=== PATIENT | male | born 1945 | race Caucasian/White ===

== ENCOUNTER 2016-08-30 11:40 | Inpatient (IN) | payer MEDICARE ==
[~2016-08-30] VITALS: Ht 160 cm; Wt 61.2 kg
[~2016-08-30 11:40] MED LIST: ASPIRIN325 MG PO; COREG 3.1253.125 MG; DEPAKOTE500 MG PO; DOLOPHINE HCL5 MG PO; MIRALAX17 GM PO; NORCO 7.5-3251 EACH PO; POTASSIUM20 MEQ/11 PO; PREDNISONE5 MG PO; XANAX0.5 MG PO; ZANTAC150 MG PO
[2016-08-30 12:58] LABS: BASOPHILS 0.3 % (0.0-2.0); EOSINOPHILS 0.5 % (0-7); HEMATOCRIT 46.7 % (42.0-54.0); HEMOGLOBIN 14.9 g/dL (13.5-17.5); IMMATURE GRANULOCYTES 0.3 % (0-5); LYMPHOCYTES 11.3 % (15-50); MCH 27.2 pg (26.0-34.0); MCHC 31.9 g/dL (31.0-37.0); MCV 85.2 fL (80.0-100.0); MEAN PLATELET VOLUME 10.5 fL (7.4-10.4); MONOCYTES 14.8 % (2-11); NEUTROPHILS 72.8 % (40-80); PLATELET COUNT 228 10x3/uL (130-400); RBC 5.48 10x6/uL (4.20-6.10); RDW 16.3 % (11.5-14.5); WBC 10.9 10x3/uL (4.8-10.8)
[2016-08-30 13:15] LABS: INR 3.11 (0.85-1.17); PROTIME 32.3 SECONDS (11.6-15.0)
[2016-08-30 13:39] LABS: APPEARANCE HAZY (CLEAR); BILIRUBIN NEGATIVE (NEGATIVE); COLOR YELLOW (YELLOW); EPITHELIAL CELLS RARE /hpf (0-5); GLUCOSE NEGATIVE (NEGATIVE); KETONE LARGE mg/dL (NEGATIVE); LEUKOCYTE ESTERASE NEGATIVE (NEGATIVE); NITRITE NEGATIVE (NEGATIVE); PROTEIN 1+ mg/dL (NEGATIVE); SPECIFIC GRAVITY 1.015 (1.005-1.020); UROBILINOGEN NORMAL (NORMAL); WHITE CELLS - URINE OCC /hpf (0-5)
[2016-08-30 13:40] LABS: BACTERIA FEW /hpf (NONE SEEN); MUCUS <1+ /lpf (NONE SEEN)
[2016-08-30 13:53] LABS: ALBUMIN 3.4 g/dL (3.4-5.0); ALKALINE PHOSPHATASE 81 U/L (46-116); ALT (SGPT) 25 U/L (10-68); BILIRUBIN - TOTAL 0.63 mg/dL (0.2-1.3); CALCIUM 8.5 mg/dL (8.5-10.1); CARBON DIOXIDE 24.3 mmol/L (21.0-32.0); CHLORIDE - SERUM 101 mmol/L (98-107); CREATININE - SERUM 1.1 mg/dL (0.6-1.3); POTASSIUM - SERUM 4.1 mmol/L (3.5-5.1); PROTEIN - SERUM 7.1 g/dL (6.4-8.2); SODIUM 139 mmol/L (136-145); UREA NITROGEN 13 mg/dL (7-18); eGFR NON AFRICAN AMERICAN 70 mL/min (90-120)
[2016-08-30 14:11] LABS: CALC OSMOLALITY 275 mosm/kg (275-300); CREATINE KINASE 456 UL (21-232); GLUCOSE 71 mg/dL (74-106); VALPROIC ACID (DEPAKOTE) 34.9 ug/mL (50.0-100.0)
[2016-08-30 14:16] LABS: TROPONIN-I < 0.017 ng/mL (0.000-0.060)
[2016-08-30 14:18] LABS: CKMB 1.8 U/L (0.0-3.6)
[2016-08-30 17:45] LABS: GLUCOSE - CSF 40 MG/DL (40-75); PROTEIN - CSF 47 MG/DL (12-60)
[2016-08-30 18:02] LABS: APPEARANCE - CSF CLEAR
[2016-08-30 18:03] LABS: RBC - CSF 2 cmm (0-0)
--- NOTE | 2016-08-30 19:58 | NUR ---
REC'D FROM ER DEPT PER STRETCHER TO ROOM 2226 A 71 Y/O W/M PER SERVICES DR. MCCLELLAND. DX. FALL/INTRACTIBLE BACK PAIN. LARGE PURPLE BRUISE TO LEFT THIGH. RT HAND ABRASION NOTED WITH COBAN ON. COBAN REMOVED AND GAUZE DRESSING APPLIED. IV RT ARM SALINE LOCK. [place] COLLAR ON NECK. SR UP X2 CALL LIGHT WITHIN REACH SCD'S APPLIED. ASSESSMENT PER ADMIT PACKET.
[2016-08-30 20:35] LABS: CKMB 1.1 U/L (0.0-3.6); CREATINE KINASE 357 UL (21-232)
[2016-08-30 20:36] LABS: TROPONIN-I < 0.017 ng/mL (0.000-0.060)
--- NOTE | 2016-08-30 21:00 | NUR ---
URIINAL IN PLACE.
--- NOTE | 2016-08-30 22:00 | NUR ---
IV OF NS STARTED AT 100CC'S/HR.
[2016-08-30 22:41] VITALS: BP 150/97; BMI 23.9
[2016-08-30] MEDS ORDERED: INDERAL10 MG PO (22:52)
[2016-08-30] MEDS ORDERED: FOLATE0.4 MG PO (22:53)
[2016-08-30] MEDS ORDERED: ULTRAM50 MG PO (22:54)
[2016-08-30] MEDS ORDERED: GABAPENTIN100 MG PO (22:55)
[2016-08-30] MEDS ORDERED: CYMBALTA60 MG PO (22:56)
[2016-08-30] MEDS ORDERED: COUMADIN5 MG PO (22:57)
--- NOTE | 2016-08-31 | NUR ---
RESTING AT THIS TIME VOIDED IN URINAL SPECIMEN OBTAINED AND SENT TO LAB.
[2016-08-31 01:00] VITALS: BP 148/88
--- NOTE | 2016-08-31 01:33 | NUR ---
C/P PAIN NECK AND HEAD MORPHINE 2 MG IVP GIVEN FOR PAIN CONTROL.
--- NOTE | 2016-08-31 01:33 | NUR ---
C/O PAIN NECK AND HEAD. MORPHINE GIVEN FOR PAIN CONTROL.
[2016-08-31 01:48] LABS: UDS - AMPHET NEGATIVE QUAL (NEGATIVE); UDS - BARB NEGATIVE QUAL (NEGATIVE); UDS - BENZO NEGATIVE QUAL (NEGATIVE); UDS - COCAINE NEGATIVE QUAL (NEGATIVE); UDS - METH NEGATIVE QUAL (NEGATIVE); UDS - OPIATE POSITIVE QUAL (NEGATIVE); UDS - PCP NEGATIVE QUAL (NEGATIVE); UDS - THC NEGATIVE QUAL (NEGATIVE)
[2016-08-31 02:26] LABS: CKMB 0.9 U/L (0.0-3.6); CREATINE KINASE 276 UL (21-232)
[2016-08-31 02:36] LABS: TROPONIN-I < 0.017 ng/mL (0.000-0.060)
--- NOTE | 2016-08-31 04:05 | NUR ---
YELLING OUT [facility] WANT[facility] TO EAT SOME FOOD.CALL HIS DREW SO SHE COULD TALK WITH HIM.
[2016-08-31 05:00] VITALS: BP 158/90
[2016-08-31 05:30] LABS: BASOPHILS 0.2 % (0.0-2.0); EOSINOPHILS 0.3 % (0-7); HEMATOCRIT 46.8 % (42.0-54.0); HEMOGLOBIN 14.9 g/dL (13.5-17.5); IMMATURE GRANULOCYTES 0.2 % (0-5); LYMPHOCYTES 11.8 % (15-50); MCHC 31.8 g/dL (31.0-37.0); MCV 84.8 fL (80.0-100.0); MEAN PLATELET VOLUME 11.2 fL (7.4-10.4); MONOCYTES 14.6 % (2-11); NEUTROPHILS 72.9 % (40-80); PLATELET COUNT 246 10x3/uL (130-400); RBC 5.52 10x6/uL (4.20-6.10); RDW 16.3 % (11.5-14.5); WBC 9.6 10x3/uL (4.8-10.8)
--- NOTE | 2016-08-31 05:45 | NUR ---
PT YELLING OUT STATES PAIN IN NECK AND HEAD. NOTIFIED NIALL MCMILLAN ORDERS REC'D. DC'D MORPHINE AND DILAUDID 0.5MG IVP GIVEN FOR PAIN CONTROL. INC URINE LINENS CHANGED.
[2016-08-31 05:50] LABS: INR 3.24 (0.85-1.17); PROTIME 33.4 SECONDS (11.6-15.0)
[2016-08-31 06:15] LABS: BILIRUBIN - TOTAL 0.55 mg/dL (0.2-1.3); CALCIUM 8.6 mg/dL (8.5-10.1); CARBON DIOXIDE 22.2 mmol/L (21.0-32.0); CREATININE - SERUM 1.1 mg/dL (0.6-1.3); POTASSIUM - SERUM 4.2 mmol/L (3.5-5.1); PROTEIN - SERUM 6.9 g/dL (6.4-8.2)
--- NOTE | 2016-08-31 06:30 | NUR ---
HERE AT BEDSIDE.
--- NOTE | 2016-08-31 07:00 | NUR ---
REPORT RECIEVED ASSUMED CARE. PATIENT IN BED WITHIV INTACT. NO COMPLAINTS A TTHIS TIME. CALL LIGHT WITHIN REACH. C COLLAR ON. BSCDS ON.
--- NOTE | 2016-08-31 08:00 | NUR ---
PATIENT IN PAIN. CALLED PHYSICIAN. NEW ORDERS RECIEVED AND CARRIED OUT.
[2016-08-31 08:02] VITALS: BP 180/113
[2016-08-31 09:18] LABS: CKMB 0.9 U/L (0.0-3.6); CREATINE KINASE 276 UL (21-232); TROPONIN-I < 0.017 ng/mL (0.000-0.060)
--- NOTE | 2016-08-31 12:08 | NUR ---
PATIENT OPTICAL FABRICATOR STARTED AT THIS TIME. IV INTACT. NO COMPLAINTS. CALL LIGHT WITHIN REACH.
[2016-08-31 12:39] VITALS: BP 166/113
[2016-08-31 13:28] LABS: ERYTHROCYTE SEDIMENTATION RATE 30 mm/hr (0-20)
[2016-08-31 14:34] VITALS: Ht 160 cm; Wt 61.2 kg
--- NOTE | 2016-08-31 14:34 | NUR ---
Patient Name: HADLEY GARCIA Admission Status: ER Accout number: [id number] Admission Date: 08-30-2016 : 1945 Admission Diagnosis:CERVICALGIA Attending: NAE Current LOS: 1 Anticipated DC Date: 09-03-2016 Planned Disposition: Home [facility] Discharge Planning Comments: CM MET WITH PATIENT REGARDING D/C NEEDS AND PLANS. PATIENT STATED HE LIVES WITH HIS (DREW) AND SHE WILL DRIVE HIM HOME AT DISCHARGE. PATIENT STATED THERE ARE 7 STEPS W/RAILS TO ENTER HIS HOME AND NO STAIRS INSIDE. PATIENT IS INDEPENDENT WITH HIS CARE AND HAS A CANE, WHEELCHAIR, AND WALKER AT HOME IF NEEDED. PATIENTS PCP IS DR. WASHINGTON AND PHARMACY IS [facility] AT [facility]. PATIENT DOES NOT THINK HE WILL NEED HOME HEALTH BUT IS OPEN TO IT IF NEEDED. CM WILL CONTINUE TO FOLLOW PATIENT WITH D/C NEEDS AND PLANS. PCP DR. WASHINGTON [facility] - [phone] DREW (SPOUSE) [phone] OR [phone] Middle [employer] Football Coach: Zena Ferguson Is the patient Alert and Oriented? Yes 0 * How many steps to enter\exit or inside your home? 7 W/RAILS 0 * PCP DR. WASHINGTON 0 * Pharmacy [facility] 0 * Preadmission Environment Home with Family 0 * ADLs Independent 0 * Equipment Cane Walker Wheelchair 0 * List name and contact numbers for known caregivers / representatives who currently or will assist patient after discharge: DREW (SPOUSE) [phone] 0 * Community resources currently utilized None 0 * Additional services required to return to the preadmission environment? Yes 0 * Can the patient safely return to the preadmission environment? Yes 0 * Has this patient been hospitalized within the prior 30 days at any hospital? No 0 Grand Total: 0
--- NOTE | 2016-08-31 16:00 | NUR ---
PATIENT TO GET MRI.
--- NOTE | 2016-08-31 17:20 | NUR ---
PATIENT BACK TO ROOM WITH IV INTACT. NO COMPLAINTS AT THIS TIME. CALL LIGHT WITHIN REACH.
--- NOTE | 2016-08-31 18:55 | NUR ---
PATIENT STATED HE DIDNT WANT TO EAT AT THIS TIME. NO COMPLAINTS. IV INTACT. CALL LIGHT WITHIN REACH.
--- NOTE | 2016-08-31 19:30 | NUR ---
PT LYING IN BED WITH COLLAR IN PLACE, ASSESSMENT COMPLETED, IV TO R FOREARM OUT WITH CATH INTACT AND DRAINING ON BED, WILL RESITE, NO ACUTE DISTRESS NOTED, FALL PRECAUTIONS IN PLACE, CL IN REACH, WILL MONITOR
--- NOTE | 2016-08-31 20:35 | NUR ---
BP 163/105, ASYMPTOMATIC, 20 G IV RESITED TO L FOREARM X 1 ATTEMPT, FLUIDS AND AFTER SCHOOL TEACHER RESTARTED, WILL MONITOR AND ADMINISTERED SCHEDULED MEDS, CL IN REACH
--- NOTE | 2016-08-31 20:50 | NUR ---
MEDS GIVEN PER MAR, DAVID WELL, DENIES NEEDS, NO DISTRESS NOTED, FALL PRECAUTIONS IN PLACE, CL IN REACH
[2016-08-31 21:00] VITALS: BP 175/106
--- NOTE | 2016-08-31 21:15 | NUR ---
BP NOW 155/100, WILL CONTINUE TO MONITOR
--- NOTE | 2016-08-31 22:30 | NUR ---
BP 149/98, WILL CONTINUE TO MONITOR, NO DISTRESS NOTED, CL IN REACH
--- NOTE | 2016-08-31 23:45 | NUR ---
RESTING WITH EYES CLOSED, AROUSES EASILY, NO ACUTE DISTRESS NOTED, FALL PRECAUTIONS IN PLACE, CL IN REACH
[2016-09-01 01:00] VITALS: BP 172/95
[2016-09-01 05:00] VITALS: BP 168/94
[2016-09-01 05:51] LABS: BASOPHILS 0.2 % (0.0-2.0); EOSINOPHILS 0.2 % (0-7); HEMATOCRIT 45.7 % (42.0-54.0); HEMOGLOBIN 14.8 g/dL (13.5-17.5); IMMATURE GRANULOCYTES 0.2 % (0-5); LYMPHOCYTES 9.1 % (15-50); MCH 27.1 pg (26.0-34.0); MCHC 32.4 g/dL (31.0-37.0); MCV 83.5 fL (80.0-100.0); MEAN PLATELET VOLUME 10.7 fL (7.4-10.4); MONOCYTES 14.3 % (2-11); PLATELET COUNT 274 10x3/uL (130-400); RBC 5.47 10x6/uL (4.20-6.10); RDW 16.4 % (11.5-14.5)
[2016-09-01 06:11] LABS: WBC 13.3 10x3/uL (4.8-10.8)
[2016-09-01 06:14] LABS: INR 2.22 (0.85-1.17); PROTIME 24.7 SECONDS (11.6-15.0)
[2016-09-01 06:16] LABS: ALBUMIN 2.4 g/dL (3.4-5.0); ALKALINE PHOSPHATASE 92 U/L (46-116); CALC OSMOLALITY 270 mosm/kg (275-300); CALCIUM 8.8 mg/dL (8.5-10.1); CARBON DIOXIDE 23.3 mmol/L (21.0-32.0); CHLORIDE - SERUM 101 mmol/L (98-107); GLUCOSE 101 mg/dL (74-106); POTASSIUM - SERUM 3.9 mmol/L (3.5-5.1); PROTEIN - SERUM 7.3 g/dL (6.4-8.2); SODIUM 136 mmol/L (136-145); UREA NITROGEN 11 mg/dL (7-18); eGFR NON AFRICAN AMERICAN 79 mL/min (90-120)
[2016-09-01 06:25] LABS: ALT (SGPT) 31 U/L (10-68)
--- NOTE | 2016-09-01 07:00 | NUR ---
REPORT RECIEVED ASSUMED CARE. PATIENT IN BED WITH IV INTACT. NO COMPLAINTS AT THIS TIME. LAYING IN BED WITH EYES CLOSED RESTING. WILL RESPOND WHEN SPOKEN TO. CALL LIGHT WITHIN REACH.
[2016-09-01 08:31] VITALS: BP 185/111
--- NOTE | 2016-09-01 10:30 | NUR ---
PATIENT UNABLE TO STAY AWAKE ENOUGH TO SWALLOW MEDS OR EAT AT THIS TIME. IV INTACT. RECIEVED IV MEDS. FAMILY AT BEDSIDE. CALL LIGHT WITHIN REACH.
[2016-09-01 11:46] VITALS: BP 166/114
--- NOTE | 2016-09-01 12:00 | NUR ---
PATIENT SLEEPING AT THIS TIME. FAMILY AT BEDSIDE. CALL LIGHT WITHIN REACH.
[2016-09-01 16:17] VITALS: BP 164/116
--- NOTE | 2016-09-01 16:30 | NUR ---
NEW ORDERS RECIEVED AND CARRIED OUT AT THIS TIME. PATIENT IN BED WITH EYES CLOSED RESTING QUIETLY. CALL LIGHT WITHIN REACH.
--- NOTE | 2016-09-01 18:14 | NUR ---
PATIENT IN BED WITH IV INTACT. NO COMPLAINTS AT THIS TIME. EYES CLOSED RSTING QUIETLY. NO SIGNS OF DISTRESS. CALL LIGHT WITHIN REACH.
--- NOTE | 2016-09-01 19:15 | NUR ---
BEDSIDE REPORT RECEIVED AND CARE OF PT ASSUMED. PT LYING IN SUPINE POSITION WITH EYES CLOSED. IV IN LEFT FA PATENT WITH NS INFUSING AT 100 ML / HR. O2 IN USE AT 2L VIA NC. WILL MONITOR CLOSLEY FOR NEEDS.
[2016-09-01 21:00] VITALS: BP 137/86
--- NOTE | 2016-09-01 22:12 | NUR ---
HS MEDICATIONS GIVEN. PT RESPONDS TO VOICE, AND FOLLOWS COMMANDS. TOOK PO MEDS WITH SIPS OF WATER WITHOUT DIFFICULTY.
[2016-09-02 02:30] VITALS: BP 142/91
--- NOTE | 2016-09-02 02:30 | NUR ---
PT CALLED FOR UPDATE. WILL BE HERE BY 7 AM TO SIGN CONSENT FORMS FOR AM PROCEDURE.
--- NOTE | 2016-09-02 03:53 | NUR ---
PT BUTTOCKS BECOMING RED, AND HE REFUSES TO BE TURNED...ONLY WANTS TO LAY FLAT ON HIS BACK.
[2016-09-02 05:00] VITALS: BP 142/90
[2016-09-02 05:51] LABS: BASOPHILS 0.1 % (0.0-2.0); EOSINOPHILS 0 % (0-7); HEMATOCRIT 44.6 % (42.0-54.0); HEMOGLOBIN 14.3 g/dL (13.5-17.5); IMMATURE GRANULOCYTES 0.3 % (0-5); LYMPHOCYTES 8.3 % (15-50); MCH 26.7 pg (26.0-34.0); MCHC 32.1 g/dL (31.0-37.0); MCV 83.2 fL (80.0-100.0); MEAN PLATELET VOLUME 10.2 fL (7.4-10.4); MONOCYTES 13.3 % (2-11); PLATELET COUNT 268 10x3/uL (130-400); RBC 5.36 10x6/uL (4.20-6.10); RDW 16.9 % (11.5-14.5)
[2016-09-02 06:00] LABS: INR 1.44 (0.85-1.17); PROTIME 17.4 SECONDS (11.6-15.0)
[2016-09-02 06:22] LABS: ALBUMIN 2.1 g/dL (3.4-5.0); ANION GAP 17.2 mmol/L (8-16); BILIRUBIN - TOTAL 0.63 mg/dL (0.2-1.3); CALCIUM 8.3 mg/dL (8.5-10.1); CARBON DIOXIDE 22.8 mmol/L (21.0-32.0); CREATININE - SERUM 1.1 mg/dL (0.6-1.3); PROTEIN - SERUM 5.8 g/dL (6.4-8.2)
--- NOTE | 2016-09-02 08:15 | NUR ---
ASSESSMENT PER FLOW SHEET.PT WITHOUT DISTRESS.NPO FOR PROCEDURE.CALL LIGHT IN REACH.
--- NOTE | 2016-09-02 08:15 | NUR ---
TO IR FOR PROCEDURE
--- NOTE | 2016-09-02 12:30 | NUR ---
HAS BEEN BACK FROM PROCEDURE.VSS.DRESSING TO BACK REMAINS CLEAN,DRY AND INTACT.BITES OF LUNCH PER .CALL LIGHT I REACH
[2016-09-02 13:31] VITALS: BP 140/95
[2016-09-02 16:17] VITALS: BP 142/92
--- NOTE | 2016-09-02 18:04 | NUR ---
RESTING,WITHOUT DISTRESS.WITHOUT CHANGE FROM INITIAL ASSESSMENT.CONT PLAN OF CARE
--- NOTE | 2016-09-02 19:00 | NUR ---
BEDSIDE REPORT RECEIVED AND CARE OF PT ASSUMED. PT LYING IN SUPINE POSITION WITH EYES CLOSED. O2 OFF AT THIS TIME, AND SPO2 96%. IV IN LEFT FA PATENT WITH NS INFUSING AT 100 ML / HR. MANAGER OF PATIENT / DILAUDID IN USE, STANDARD SETTINGS. SCD'S IN USE ON BLE. TELEMETRY IN PLACE AND READING 87 SR W/ ELEVETED ST AT THIS ASSESSMENT. WILL MONITOR CLOSELY FOR NEEDS. CALL LIGHT WITHIN REACH.
[2016-09-02 20:00] VITALS: BP 131/81
--- NOTE | 2016-09-02 22:20 | NUR ---
HS MEDICATIONS GIVEN. PT AWOKE AND TOOK PO MEDS WITH SIPS OF WATER WITHOUT DIFFICULTY. WILL CONTINUE TO MONITOR FOR NEEDS.
[2016-09-03] VITALS: BP 126/85
--- NOTE | 2016-09-03 00:20 | NUR ---
BATHED PT AND CHANGED ALL LINENS AND GOWN DUE TO INCONTINENT EPISODE. POSITIONED FOR COMFORT. CALL LIGHT WITHIN REACH. SIDE RAILS UP X2 FOR SAFETY.
[2016-09-03 04:00] VITALS: BP 120/85
--- NOTE | 2016-09-03 05:00 | NUR ---
BATHED AND CHANGED LINENS DUE TO INCONTINENCE EPISODE. POSITIONED FOR COMFORT. WILL CONTINUE TO MONITOR FOR NEEDS.
--- NOTE | 2016-09-03 05:30 | NUR ---
CHANGED DRESSING ON RIGHT HAND. CLEANSED WITH WOUND DESIGNATED BROKER AND PLACED NONSTICK TELFA, AND WRAPPED WITH KERLEX. PT TOLERATED WELL.
[2016-09-03 07:00] LABS: BASOPHILS 0 % (0.0-2.0); EOSINOPHILS 0 % (0-7); HEMATOCRIT 41.9 % (42.0-54.0); HEMOGLOBIN 13.7 g/dL (13.5-17.5); IMMATURE GRANULOCYTES 0.2 % (0-5); MCH 27.2 pg (26.0-34.0); MCHC 32.7 g/dL (31.0-37.0); MCV 83.3 fL (80.0-100.0); MEAN PLATELET VOLUME 10.6 fL (7.4-10.4); MONOCYTES 0.8 % (2-11); PLATELET COUNT 277 10x3/uL (130-400); RBC 5.03 10x6/uL (4.20-6.10); RDW 17.1 % (11.5-14.5)
[2016-09-03 07:19] LABS: ALBUMIN 1.9 g/dL (3.4-5.0); ANION GAP 15.1 mmol/L (8-16); BILIRUBIN - TOTAL 0.3 mg/dL (0.2-1.3); CALCIUM 8.6 mg/dL (8.5-10.1); CREATININE - SERUM 1.1 mg/dL (0.6-1.3); POTASSIUM - SERUM 4.1 mmol/L (3.5-5.1); PROTEIN - SERUM 6.7 g/dL (6.4-8.2)
[2016-09-03 07:32] LABS: INR 1.17 (0.85-1.17); PROTIME 14.8 SECONDS (11.6-15.0)
[2016-09-03 08:13] VITALS: BP 146/60
--- NOTE | 2016-09-03 09:00 | NUR ---
ASSESSMENT PER FLOW SHEET.PT AWAKE AND WITHOUT DISTRESS.TALKING WITH PT HE DOEANT REMEMBER MUCH ABOUT YESTREDAY OR SEEING .SAYS WILL BE HERE SOON.CALL LIGHT IN REACH.FALL PREVENTION IN PLACE.
[2016-09-03 12:17] LABS: FUNGUS STAIN Final report (())
[2016-09-03 12:26] VITALS: BP 135/103
--- NOTE | 2016-09-03 14:32 | NUR ---
RESTING WITHOUT DISTRESS.MONITOR FOR NEEDS
--- NOTE | 2016-09-03 15:24 | NUR ---
Rehab Note- Rehab Prescreen order received. The patient is [facility] and will require a PreAuth prior to IRF stay. Will need both a PT and OT eval. Thank you for this referral! Randee Chacon RN Clinical Liaison, Rehab Care/[facility]
[2016-09-03 16:02] VITALS: BP 130/85
--- NOTE | 2016-09-03 18:47 | NUR ---
REMAINS WITHOUT DISTRESS.WITHOUT CHANGE FROM INITIAL ASSESSMENT.CONT PLAN OF CARE
--- NOTE | 2016-09-03 18:55 | NUR ---
OT NOTE: PT COMPLETED BUE AROM EXS FOR INCREASED ACTIVITY TOLERANCE WITH ADLS. PT COMPLETED GROOMING TASK WITH MIN/MOD A. PT COMPLETED BED MOB WITH USE OF HAND RAILS. THANK YOU, BOZENA DUARTE/Luiz
[2016-09-03 21:00] VITALS: BP 159/101
[2016-09-03 21:07] LABS: AFB SPECIMEN PROCESSING Concentration (())
--- NOTE | 2016-09-04 00:16 | NUR ---
PT IS UP IN BEDSIDE CHAIR EATING SNACK. HE STATES HIS HEAD HURTS. HIS NURSE WAS FOUND TO BE AWAARE AND GETTING THE PAIN MEDS TOGETHER THAT HIS MD HAD ORDERED. THE BED IS LOW, RAILS UP X'S 2 WITH THE CALL LIGHT AT HAND.
--- NOTE | 2016-09-04 00:57 | NUR ---
PATIENT IS NOT AGITATED ANYMORE. 2 NORCO WERE GIVEN FOR HEAD AND NECK PAIN. PATIENT STATED HE IS GOING TO SLEEP IN THE CHAIR.
[2016-09-04 02:15] VITALS: BP 160/90
[2016-09-04 04:00] VITALS: BP 160/87
[2016-09-04 06:42] LABS: BASOPHILS 0 % (0.0-2.0); EOSINOPHILS 0 % (0-7); HEMATOCRIT 45.4 % (42.0-54.0); HEMOGLOBIN 14.4 g/dL (13.5-17.5); IMMATURE GRANULOCYTES 0.2 % (0-5); LYMPHOCYTES 6.8 % (15-50); MCH 26.9 pg (26.0-34.0); MCHC 31.7 g/dL (31.0-37.0); MCV 84.9 fL (80.0-100.0); MEAN PLATELET VOLUME 10.2 fL (7.4-10.4); MONOCYTES 1.9 % (2-11); NEUTROPHILS 91.1 % (40-80); RBC 5.35 10x6/uL (4.20-6.10); RDW 17.2 % (11.5-14.5)
[2016-09-04 06:47] LABS: WBC 11.8 10x3/uL (4.8-10.8)
[2016-09-04 06:48] LABS: PLATELET COUNT 352 10x3/uL (130-400)
[2016-09-04 06:59] LABS: ALBUMIN 2.7 g/dL (3.4-5.0); ANION GAP 15.6 mmol/L (8-16); BILIRUBIN - TOTAL 0.5 mg/dL (0.2-1.3); CALCIUM 9.5 mg/dL (8.5-10.1); CARBON DIOXIDE 24.3 mmol/L (21.0-32.0); CREATININE - SERUM 1.2 mg/dL (0.6-1.3); POTASSIUM - SERUM 3.9 mmol/L (3.5-5.1); PROTEIN - SERUM 7.8 g/dL (6.4-8.2)
[2016-09-04 07:02] LABS: INR 1.1 (0.85-1.17); PROTIME 14.1 SECONDS (11.6-15.0)
--- NOTE | 2016-09-04 07:15 | NUR ---
AWAKE CONFUSED MULTIPLE BRUISES OVER BODY AT PRESENT AT BEDSIDE TRYING TO RE-ORIENT PT SCDS IN PLACE SL PATENT IN LFA.
--- NOTE | 2016-09-04 09:30 | NUR ---
PTS BED CHGD TO BED ALARM BED AND IRINA MT IN PLACE.
[2016-09-04 10:36] VITALS: BP 159/93
--- NOTE | 2016-09-04 11:00 | NUR ---
AWAKE ALERT COLOR AT PRESENT TALKING TO STATES FEELS WELL AT PRESENT TIME SWELLING NOTED STILL TO RT LOWER LEGS.
[2016-09-04 11:32] VITALS: BP 148/91
--- NOTE | 2016-09-04 13:00 | NUR ---
UP IN CHAIR WITH PT AT BEDSIDE AT PRESENT,
--- NOTE | 2016-09-04 15:00 | NUR ---
MARLINEY AT PRESENT DENIES AND NEEDS AT PRESENT VOIDING FREELY PER URINAL AT PRESENT.
[2016-09-04 15:12] VITALS: BP 148/93
--- NOTE | 2016-09-04 16:00 | NUR ---
SLEEPING QUIETLY AT PRESENT N/C AT PRESENT RESP EVEN AND UNLABORED AT PRESENT.
--- NOTE | 2016-09-04 16:00 | NUR ---
RAY CATH PLACED IN ST MANNER VIA VONDA TURNER 16 COUDUIT AT PRESENT RET URINE YELLOW.
--- NOTE | 2016-09-04 18:03 | NUR ---
SLEEPING QUIETLY AT PRESENT RESP EVEN AND UNLABORED AT PRESENT.
[2016-09-04 20:00] VITALS: BP 165/90
[2016-09-05] VITALS: BP 162/97
[2016-09-05 04:00] VITALS: BP 152/96
--- NOTE | 2016-09-05 05:50 | NUR ---
PATIENT AWAKE AND CONFUSED IN BED, ATTEMPT TO GET OOB 3 TIMES WITHOUT ASSISSTANCE. IRINA MAT ACTIVE. PIV SL IN LFA. BANDAGE ON BACK FROM AN I&D WITH NO DRAINAGE NOTED. PATIENT INCONT BLADDER. BED IN LOWEST LOCKED POSITION, HOB ELEVATED 40 DEGREES, IRINA ALARM ON, CALL LIGHT WITHIN REACH.
--- NOTE | 2016-09-05 07:30 | NUR ---
SLEEPING QUIETLY RESP EVEN AND UNLABORED AT PRESENT DENIES ANY NEEDS AT THIS TIME 02 CONT AT 2 L N/C.
--- NOTE | 2016-09-05 09:00 | NUR ---
MEDS GIVEN PT SOME WHAT CONFUSED AT PRESENT.
[2016-09-05 09:01] VITALS: BP 156/77
--- NOTE | 2016-09-05 10:30 | NUR ---
PT HERE TO GET PT UP DAVID WELL AT PRESENT .
--- NOTE | 2016-09-05 10:45 | NUR ---
REF TO STAY IN CHAIR READY TO GET BACK IN BED AT PRESENT.
[2016-09-05 12:06] VITALS: BP 150/77
--- NOTE | 2016-09-05 12:30 | NUR ---
PT REFUSING TO EAT HOLLERING AT NURSE TO GET OUT OF HIS ROOM AND LEAVE HIM ALONE.
--- NOTE | 2016-09-05 13:00 | NUR ---
CONT CONFUSED AT PRESENT PT RE-ORIENTED TO TIME PLACE AND PERSON CONT CONFUSED AT PRESENT.
[2016-09-05 13:52] LABS: BASOPHILS 0 % (0.0-2.0); EOSINOPHILS 0 % (0-7); HEMATOCRIT 40.4 % (42.0-54.0); HEMOGLOBIN 12.9 g/dL (13.5-17.5); IMMATURE GRANULOCYTES 0.4 % (0-5); LYMPHOCYTES 5.9 % (15-50); MCH 26.7 pg (26.0-34.0); MCHC 31.9 g/dL (31.0-37.0); MCV 83.6 fL (80.0-100.0); MEAN PLATELET VOLUME 10.5 fL (7.4-10.4); MONOCYTES 6.5 % (2-11); NEUTROPHILS 87.2 % (40-80); PLATELET COUNT 306 10x3/uL (130-400); RBC 4.83 10x6/uL (4.20-6.10); RDW 16.8 % (11.5-14.5)
[2016-09-05 14:14] LABS: ALBUMIN 2.4 g/dL (3.4-5.0); ANION GAP 11.8 mmol/L (8-16); BILIRUBIN - TOTAL 0.4 mg/dL (0.2-1.3); CALCIUM 8.3 mg/dL (8.5-10.1); CARBON DIOXIDE 27.4 mmol/L (21.0-32.0); CREATININE - SERUM 1.1 mg/dL (0.6-1.3); POTASSIUM - SERUM 4.2 mmol/L (3.5-5.1); PROTEIN - SERUM 5.8 g/dL (6.4-8.2)
--- NOTE | 2016-09-05 16:01 | NUR ---
CONT CONFUSED AT PRESENT GONE HOME AT PRESENT AT PRESENT N/C AT PRESENT.
[2016-09-05 16:26] VITALS: BP 151/91
--- NOTE | 2016-09-05 16:33 | NUR ---
CONT TO TRY AND GET OUT OF BED AT PRESENT.
--- NOTE | 2016-09-05 18:20 | NUR ---
CONT CONFUSED AT PRESENT .
[2016-09-05 19:00] VITALS: BP 170/104
--- NOTE | 2016-09-05 20:15 | NUR ---
PATIENT AWAKE AND ALERT BUT CONFUSED. 0 S/S OF DISTRESS. DENIES PAIN. 10MG OF APRESOLINE GIVEN THROUGH IV IN LEFT WRIST FOR BP OF 170/105. WILL REASSESS.
[2016-09-06] VITALS (7 sets, daily range): BP systolic 94–169; BP diastolic 56–109
--- NOTE | 2016-09-06 03:47 | NUR ---
SKIN PILER NOTIFIED THAT PATIENT WAS FOUND ON THE BATHROOM FLOOR AFTER SLIPPING OFF THE TOILET WHILE ATTEMPTING TO PUT ON A NEW PAIR OF BRIEFS. PATIENT IS STABLE, CONFUSED, HYPERTENSIVE, ON TELEMETRY, HEART RATE AND RHYTHM 68 SINUS, PULSE OXEMTRY MID 90'S. ONLY INJURY NOTED WAS A SMALL MAROON BRUISE THAT HAS A SMALL AMOUNT OF BLEEDING. PATIENT IS ABLE TO IDENTIFY THE NURSE BY NAME. BOX ALARM IS BEING ADDED ANOTHER SAFETY PERCAUTION.
[2016-09-06 05:40] LABS: BASOPHILS 0.1 % (0.0-2.0); EOSINOPHILS 0 % (0-7); HEMOGLOBIN 12.6 g/dL (13.5-17.5); IMMATURE GRANULOCYTES 0.9 % (0-5); MCH 26.3 pg (26.0-34.0); MCHC 31.5 g/dL (31.0-37.0); MCV 83.5 fL (80.0-100.0); MEAN PLATELET VOLUME 10.1 fL (7.4-10.4); MONOCYTES 14.9 % (2-11); NEUTROPHILS 67.1 % (40-80); PLATELET COUNT 280 10x3/uL (130-400); RBC 4.79 10x6/uL (4.20-6.10); RDW 16.9 % (11.5-14.5)
[2016-09-06 06:13] LABS: ALBUMIN 2.4 g/dL (3.4-5.0); ALKALINE PHOSPHATASE 65 U/L (46-116); ALT (SGPT) 46 U/L (10-68); BILIRUBIN - TOTAL 0.45 mg/dL (0.2-1.3); CALC OSMOLALITY 291 mosm/kg (275-300); CALCIUM 8.5 mg/dL (8.5-10.1); CARBON DIOXIDE 29.6 mmol/L (21.0-32.0); CHLORIDE - SERUM 106 mmol/L (98-107); GLUCOSE 104 mg/dL (74-106); PROTEIN - SERUM 5.9 g/dL (6.4-8.2); SODIUM 144 mmol/L (136-145); UREA NITROGEN 27 mg/dL (7-18); eGFR NON AFRICAN AMERICAN 79 mL/min (90-120)
[2016-09-06 06:26] LABS: POTASSIUM - SERUM 3.4 mmol/L (3.5-5.1)
--- NOTE | 2016-09-06 07:15 | NUR ---
SLEEPING AT THIS TIME. NO S/S OF DISTRESS PRESENT. RESPIRATIONS EVEN AND NON LABORED. CALL LIGHT IN REACH, WILL CONTINUE WITH PLAN OF CARE. IRINA MAT ALARM IN USE.
--- NOTE | 2016-09-06 09:46 | NUR ---
SCHEDULED MEDICATIONS ADMINISTERED AT THIS TIME WELL PRN NORCO PER ORDER FOR HEADACHE. ASSESSMENT PERFORMED PER FLOWSHEET. AT BEDSIDE. CALL LIGHT IN REACH, WILL CONTINUE WITH PLAN OF CARE.
--- NOTE | 2016-09-06 11:00 | NUR ---
RECEIVING BED BATH AT THIS TIME FOR INCONTINENCE BY NATHALY BATEMAN. REMAINS AT BEDSIDE. IRINA MAT ALARM IN USE.
--- NOTE | 2016-09-06 13:15 | NUR ---
UP IN RECLINER PER PHYSICAL THERAPY. SLEEPING AT THIS TIME WITH RESPIRATIONS EVEN AND NON LABORED. CALL LIGHT IN REACH, WILL CONTINUE WITH PLAN OF CARE.
--- NOTE | 2016-09-06 13:27 | NUR ---
CM REASSESSMENT NOTE: PATIENTS REFERRAL WAS SENT TO [facility] AND SENTHIL CALLED CM BACK AND STATED THEY WOULD NOT HAVE ANY BEDS AVAILABLE THIS WEEK. CM CALLED PATIENTS AND SHE CHOSE [facility]-REFERRAL SENT.
--- NOTE | 2016-09-06 14:40 | NUR ---
09/06/2016 14:33 DCP: Discharge Planning Tristan Application completed & faxed to [facility]. Patient has been approved for 60 days of convalescent care. Copy faxed to Hollie @ [facility].
--- NOTE | 2016-09-06 15:08 | NUR ---
NUTRITION MONITORING & EVAL CHART REVIEWED. PT VISIT. TOLERATING REG DIET, 75 TO 100% INTAKE RECENT MEALS. WILL CONTINUE TO PROVIDE DIET, HONOR FOOD PREFERENCES. RD FOLLOWING
--- NOTE | 2016-09-06 15:30 | NUR ---
SCHEDULED MEDICATIONS ADMINISTERED AT THIS TIME. TAKEN WITHOUT DIFFICULTY. PT DENIES NEEDS AT THIS TIME. CALL LIGHT IN REACH, WILL CONTINUE WITH PLAN OF CARE.
--- NOTE | 2016-09-06 19:19 | NUR ---
RECIEVED PT SITTING UP IN BED RESTING WITH EYES CLOSED, EASILY AROUSED, NO DISTRESS NOTED, IRINA ALARM ON, SR'S UP, CL IN REACH, WILL MONITOR
--- NOTE | 2016-09-06 20:43 | NUR ---
ROUTINE MEDS GIVEN PER MAR, DAVID WELL, DENIES NEEDS, FALL PRECAUTIONS IN PLACE, CL IN REACH
--- NOTE | 2016-09-06 23:15 | NUR ---
RESTING WITH EYES CLOSED, RESP WITH EASE, NO DISTRESS NOTED, FALL PRECAUTIONS IN PLACE, CL IN REACH
[2016-09-07 01:00] VITALS: BP 136/80
--- NOTE | 2016-09-07 03:29 | NUR ---
PRN NORCO GIVEN FOR C/O SMITH 01/17, DAVID WELL, CL IN REACH
[2016-09-07 04:00] VITALS: BP 138/86
[2016-09-07 05:40] LABS: BASOPHILS 0 % (0.0-2.0); EOSINOPHILS 1.4 % (0-7); HEMATOCRIT 39.2 % (42.0-54.0); HEMOGLOBIN 12.3 g/dL (13.5-17.5); IMMATURE GRANULOCYTES 1.2 % (0-5); LYMPHOCYTES 22.7 % (15-50); MCH 26.5 pg (26.0-34.0); MCHC 31.4 g/dL (31.0-37.0); MCV 84.5 fL (80.0-100.0); MEAN PLATELET VOLUME 10.5 fL (7.4-10.4); MONOCYTES 15.4 % (2-11); NEUTROPHILS 59.3 % (40-80); PLATELET COUNT 282 10x3/uL (130-400); RBC 4.64 10x6/uL (4.20-6.10); RDW 17.3 % (11.5-14.5); WBC 6.6 10x3/uL (4.8-10.8)
[2016-09-07 06:30] LABS: ALBUMIN 2.2 g/dL (3.4-5.0); ANION GAP 11.4 mmol/L (8-16); BILIRUBIN - TOTAL 0.33 mg/dL (0.2-1.3); CARBON DIOXIDE 26.5 mmol/L (21.0-32.0); CREATININE - SERUM 1.2 mg/dL (0.6-1.3); POTASSIUM - SERUM 3.9 mmol/L (3.5-5.1); PROTEIN - SERUM 5.5 g/dL (6.4-8.2)
--- NOTE | 2016-09-07 07:10 | NUR ---
ALERT AND ORIENTED WATCHING TV AT THIS TIME. CALL LIGHT IN REACH, BED IN LOWEST POSITION. WILL CONTINUE WITH PLAN OF CARE.
[2016-09-07 07:59] VITALS: BP 134/86
--- NOTE | 2016-09-07 09:24 | NUR ---
SCHEDULED MEDICATIONS ADMINISTERED AT THIS TIME. TAKEN WITHOUT DIFFICULTY. PT EATING BREAKFAST AT THIS TIME WITH MEAL SET UP ASSISTANCE. DENIES NEEDS AT PRESENT. ASSESSMENT PERFORMED PER FLOWSHEET. SRX2 WITH BED IN LOWEST POSITION AND WHEELS LOCKED. IRINA MAT ALARM IN USE FOR FALL PRECAUTIONS.
[2016-09-07 12:06] VITALS: BP 126/69
--- NOTE | 2016-09-07 12:34 | NUR ---
PRN NORCO-10 2 TABLETS ADMINISTERED AT THIS TIME FOR PAIN 7/10 IN HEAD AND NECK REGION. PAIN IS DESCRIBED TENSION. CALL LIGHT IN REACH, BED IN LOWEST POSITION WITH CALL LIGHT IN REACH. IRINA MAT ALARM ON AND IN USE AT THIS TIME. WILL CONTINUE WITH PLAN OF CARE.
--- NOTE | 2016-09-07 15:12 | NUR ---
CM REASSESSMENT NOTE: DISCHARGE TODAY-PATIENT HAS BEEN ACCEPTED TO [facility]. HE WILL GO BY FACILITY VAN TO A SKILLED BED.
[2016-09-07] MEDS ORDERED: INDERAL10 MG PO (15:38)
[2016-09-07] MEDS ORDERED: LOVENOX40 MG/0.4 SC (15:39)
[2016-09-07 16:17] VITALS: BP 112/82
--- NOTE | 2016-09-07 16:37 | NUR ---
IV TO LEFT WRIST D/C WITH CATH TIP INTACT. DISCHARGE INSTRUCTIONS SIGNED AND REPORT CALLED TO PATRICIA QUIROS LPN.
[2016-09-29 13:18] LABS: FUNGUS MYCOLOGY CULTURE Final report (())
[2016-10-02] MEDS ORDERED: CYCLOBENZAPRINE5 MG PO (01:09)
[2016-10-20 11:16] LABS: ACID FAST CULTURE Negative (()); ACID FAST SMEAR Negative (())
== END 2016-09-07 16:35 | DRG 919 ==
LOC: D.ER 11:40 → D.MS 18:03
PROVIDERS: Emergency Medicine Emergency Medical Services; Radiology Vascular & Interventional Radiology; ADMIT Family Medicine
PROC: 009U3ZX Drainage of Spinal Canal, Percutaneous Approach, Diagnostic (ICD-10-PCS; 2016-08-30)
PROC: 009U3ZZ Drainage of Spinal Canal, Percutaneous Approach (ICD-10-PCS; principal; 2016-09-02 08:16)
DX: G97.63 Postprocedural seroma of a nervous system organ or structure following a nervous system procedure (principal); G93.49 Other encephalopathy; R53.2 Functional quadriplegia; F31.89 Other bipolar disorder; S16.1XXA Strain of muscle, fascia and tendon at neck level, initial encounter; W19.XXXA Unspecified fall, initial encounter; S39.012A Strain of muscle, fascia and tendon of lower back, initial encounter; Y83.8 Other surgical procedures as the cause of abnormal reaction of the patient, or of later complication, without mention of misadventure at the time of the procedure; R50.9 Fever, unspecified; I10 Essential (primary) hypertension; M06.9 Rheumatoid arthritis, unspecified; K58.9 Irritable bowel syndrome, unspecified; G62.9 Polyneuropathy, unspecified; Z86.718 Personal history of other venous thrombosis and embolism; G97.1 Other reaction to spinal and lumbar puncture

== ENCOUNTER → 2016-10-08 09:34 | Outpatient (CLI) | payer MEDICARE ==
[2016-08-31 14:34] VITALS: BMI 23.9
[~2016-10-08 09:34] MED LIST changes: +ACETAMINOPHEN325 MG PO; +COUMADIN5 MG PO; +CYCLOBENZAPRINE5 MG PO; +CYMBALTA60 MG PO; +ELIQUIS2.5 MG PO; +FLOMAX0.4 MG PO; +FOLATE0.4 MG PO; +GABAPENTIN100 MG PO; +INDERAL10 MG PO; +LOVENOX40 MG/0.4 SC; +TAMIFLU75 MG PO; +ULTRAM50 MG PO; +ZOFRAN4 MG PO
== END | disposition home or self-care (01) ==
LOC: D.US 09:34
DX: R60.0 Localized edema (principal); M79.661 Pain in right lower leg

== ENCOUNTER 2016-10-08 12:38 | Inpatient (IN) | payer MEDICARE ==
[~2016-10-08] VITALS: Ht 160 cm; Wt 68.0 kg
[~2016-10-08 12:38] MED LIST changes: -ACETAMINOPHEN325 MG PO; -ELIQUIS2.5 MG PO; -FLOMAX0.4 MG PO; -TAMIFLU75 MG PO; -ZOFRAN4 MG PO
[2016-10-08 13:09] LABS: BASOPHILS 0.3 % (0.0-2.0); EOSINOPHILS 1.7 % (0-7); HEMOGLOBIN 12.6 g/dL (13.5-17.5); IMMATURE GRANULOCYTES 1.2 % (0-5); LYMPHOCYTES 19.3 % (15-50); MCH 27.3 pg (26.0-34.0); MCHC 30.7 g/dL (31.0-37.0); MCV 88.9 fL (80.0-100.0); MEAN PLATELET VOLUME 10.5 fL (7.4-10.4); MONOCYTES 14.4 % (2-11); NEUTROPHILS 63.1 % (40-80); PLATELET COUNT 148 10x3/uL (130-400); RBC 4.61 10x6/uL (4.20-6.10); WBC 7.8 10x3/uL (4.8-10.8)
[2016-10-08 13:40] LABS: APPEARANCE CLEAR (CLEAR); BILIRUBIN NEGATIVE (NEGATIVE); COLOR YELLOW (YELLOW); GLUCOSE NEGATIVE (NEGATIVE); KETONE NEGATIVE (NEGATIVE); LEUKOCYTE ESTERASE NEGATIVE (NEGATIVE); NITRITE NEGATIVE (NEGATIVE); PROTEIN TRACE mg/dL (NEGATIVE); SPECIFIC GRAVITY 1.015 (1.005-1.020); UROBILINOGEN NORMAL (NORMAL)
[2016-10-08 13:43] LABS: BACTERIA FEW /hpf (NONE SEEN); EPITHELIAL CELLS 0-5 /hpf (0-5); RED CELLS - URINE 0-5 /hpf (0-5); WHITE CELLS - URINE 0-5 /hpf (0-5)
[2016-10-08 13:47] LABS: ALBUMIN 2.7 g/dL (3.4-5.0); ALKALINE PHOSPHATASE 60 U/L (46-116); ALT (SGPT) 23 U/L (10-68); BILIRUBIN - TOTAL 0.23 mg/dL (0.2-1.3); CALCIUM 8.1 mg/dL (8.5-10.1); CARBON DIOXIDE 24.5 mmol/L (21.0-32.0); CHLORIDE - SERUM 109 mmol/L (98-107); CREATININE - SERUM 1.4 mg/dL (0.6-1.3); GLUCOSE 86 mg/dL (74-106); POTASSIUM - SERUM 3.9 mmol/L (3.5-5.1); PROTEIN - SERUM 6.2 g/dL (6.4-8.2); SODIUM 142 mmol/L (136-145); eGFR NON AFRICAN AMERICAN 53 mL/min (90-120)
[2016-10-08 13:48] LABS: CALC OSMOLALITY 283 mosm/kg (275-300); UREA NITROGEN 18 mg/dL (7-18)
[2016-10-08 13:56] LABS: AMYLASE - SERUM 39 U/L (25-115); CREATINE KINASE 144 UL (21-232); LIPASE 85 U/L (73-393); PRO BNP 253 pg/mL (0-125)
[2016-10-08 13:59] LABS: TROPONIN-I < 0.017 ng/mL (0.000-0.060)
[2016-10-08 14:13] LABS: APTT 31.1 SECONDS (22.8-39.4); INR 1.14 (0.85-1.17); PROTIME 14.4 SECONDS (11.6-15.0)
[2016-10-08 23:17] VITALS: BP 117/71
[2016-10-09] VITALS: BP 117/71
[2016-10-09] MEDS ORDERED: ELIQUIS2.5 MG PO (00:39)
[2016-10-09] MEDS ORDERED: FLOMAX0.4 MG PO (01:10)
[2016-10-09] MEDS ORDERED: ZOFRAN4 MG PO (01:12)
[2016-10-09] MEDS ORDERED: ACETAMINOPHEN325 MG PO (02:14)
[2016-10-09 04:00] VITALS: BP 145/83
[2016-10-09 07:08] LABS: BASOPHILS 0.2 % (0.0-2.0); EOSINOPHILS 0.8 % (0-7); HEMATOCRIT 38.7 % (42.0-54.0); HEMOGLOBIN 11.6 g/dL (13.5-17.5); IMMATURE GRANULOCYTES 1.7 % (0-5); LYMPHOCYTES 23.1 % (15-50); MCH 26.8 pg (26.0-34.0); MCV 89.4 fL (80.0-100.0); MEAN PLATELET VOLUME 10.5 fL (7.4-10.4); MONOCYTES 34.6 % (2-11); NEUTROPHILS 39.6 % (40-80); PLATELET COUNT 153 10x3/uL (130-400); RBC 4.33 10x6/uL (4.20-6.10); RDW 19.2 % (11.5-14.5)
[2016-10-09 07:26] LABS: WBC 4.8 10x3/uL (4.8-10.8)
--- NOTE | 2016-10-09 07:30 | NUR ---
AWAKE AND PLEASANT, AT BEDSIDE, SLIGHTLY CONFUSED, DENIES NEEDS, BED LOWEST POSITION, CALL LIGHT IN REACH, WILL CONTINUE TO MONITOR
[2016-10-09 07:33] LABS: ALBUMIN 2.3 g/dL (3.4-5.0); BILIRUBIN - TOTAL 0.24 mg/dL (0.2-1.3); CALCIUM 7.5 mg/dL (8.5-10.1); CARBON DIOXIDE 24.5 mmol/L (21.0-32.0); CREATININE - SERUM 1.2 mg/dL (0.6-1.3); POTASSIUM - SERUM 3.5 mmol/L (3.5-5.1); PROTEIN - SERUM 5.6 g/dL (6.4-8.2)
[2016-10-09 08:41] VITALS: BP 136/77
--- NOTE | 2016-10-09 09:39 | NUR ---
Patient Name: HADLEY GARCIA Admission Status: ER Accout number: [id number] Admission Date: 10-08-2016 : 1945 Admission Diagnosis: Hypoxia, FLU Attending: NEDA Current LOS: 1 Anticipated DC Date: 10-12-2016 Planned Disposition: Long-Term Facility Primary Insurance: [facility] Discharge Planning Comments: Cm met with patient and to complete initial discharge planning assessment. Patient's gave consent to complete assessment. Patient has been at [facility] for aprox 3 weeks now. He is not ambulatory and uses a WC. Patient has been confused according to his since his last back surgery in March. She reports he knew her at 7am and by 8am he didn't. His confusion comes and goes. He is going to be seen by a neurologist to check him for Parkinsons. Patient spouse reports he will return to [facility] at discharge to complete his rehab. CM will continue to follow and assist with dc plan/needs. Surgical Garment Fitter: Trish Mendes RN, [facility] [phone] Is the patient Alert and Oriented? No 0 * How many steps to enter\exit or inside your home? none 0 * PCP Dr. Kraus 0 * Pharmacy [facility] 0 * Preadmission Environment Long-Term Facility 0 * Facility Name [facility] 0 * ADLs Partial Dependent 0 * Partial ADLs (Assistance needed) Ambulation Bathing Dressing Eating Medication Management Toileting 0 * Equipment Wheelchair 0 * List name and contact numbers for known caregivers / representatives who currently or will assist patient after discharge: Maria Esther Garcia - spouse - [phone] * Community resources currently utilized None 0 * Additional services required to return to the preadmission environment? No 0 * Can the patient safely return to the preadmission environment? Yes 0 * Has this patient been hospitalized within the prior 30 days at any hospital? Yes
[2016-10-09 11:35] VITALS: Ht 160 cm; Wt 68.0 kg
--- NOTE | 2016-10-09 13:25 | NUR ---
NATHALY GAO IN ROOM PROVIDING INCONTINENCE CARE AT THIS TIME. PT AND FAMILY DENY NEEDS. RESPIRATIONS EVEN AND NON LABORED. DENIES NEEDS AT PRESENT TIME. SRX2 WITH BED IN LOWEST POSITION AND WHEELS LOCKED. REMAINS IN DROPLET ISOLATION FOR THE FLU. CALL LIGHT IN REACH, WILL CONTINUE WITH PLAN OF CARE.
[2016-10-09 19:46] LABS: APPEARANCE CLEAR (CLEAR); BACTERIA NONE SEEN /hpf (NONE SEEN); BILIRUBIN NEGATIVE (NEGATIVE); COLOR YELLOW (YELLOW); EPITHELIAL CELLS 0-5 /hpf (0-5); GLUCOSE NEGATIVE (NEGATIVE); KETONE NEGATIVE (NEGATIVE); LEUKOCYTE ESTERASE NEGATIVE (NEGATIVE); NITRITE NEGATIVE (NEGATIVE); PROTEIN NEGATIVE (NEGATIVE); UROBILINOGEN NORMAL (NORMAL); WHITE CELLS - URINE 0-5 /hpf (0-5)
[2016-10-09 19:55] LABS: UDS - AMPHET NEGATIVE QUAL (NEGATIVE); UDS - BARB NEGATIVE QUAL (NEGATIVE); UDS - BENZO NEGATIVE QUAL (NEGATIVE); UDS - COCAINE NEGATIVE QUAL (NEGATIVE); UDS - METH NEGATIVE QUAL (NEGATIVE); UDS - OPIATE NEGATIVE QUAL (NEGATIVE); UDS - PCP NEGATIVE QUAL (NEGATIVE); UDS - THC NEGATIVE QUAL (NEGATIVE)
--- NOTE | 2016-10-10 00:33 | NUR ---
ASSESSED AT THE BEGINNING OF THE SHIFT. PT IS ALERT AND ORIENTED, BUT LETHARGIC AND SEEMS TO BE A LITTLE CONFUSED, STATING HE DOSENT REMEMBER OR KNOW SOME THINGS. HE HAS TELEMETRY IN PLACE AND REMAINS IN DROPLET ISOLATION FOR FLU. THE BED IS LOW, RAILS UP X'S 2 WITH THE CALL LIGHT AT HAND.
[2016-10-10 05:50] LABS: BASOPHILS 0.5 % (0.0-2.0); EOSINOPHILS 1.2 % (0-7); HEMATOCRIT 42.2 % (42.0-54.0); HEMOGLOBIN 13.3 g/dL (13.5-17.5); IMMATURE GRANULOCYTES 0.7 % (0-5); LYMPHOCYTES 29.7 % (15-50); MCH 27.7 pg (26.0-34.0); MCHC 31.5 g/dL (31.0-37.0); MCV 87.9 fL (80.0-100.0); MEAN PLATELET VOLUME 9.8 fL (7.4-10.4); MONOCYTES 27.4 % (2-11); NEUTROPHILS 40.5 % (40-80); PLATELET COUNT 155 10x3/uL (130-400); RDW 18.5 % (11.5-14.5); WBC 4.3 10x3/uL (4.8-10.8)
[2016-10-10 06:21] LABS: ALBUMIN 2.7 g/dL (3.4-5.0); ANION GAP 11.1 mmol/L (8-16); BILIRUBIN - TOTAL 0.3 mg/dL (0.2-1.3); CARBON DIOXIDE 27.2 mmol/L (21.0-32.0); CREATININE - SERUM 1.2 mg/dL (0.6-1.3); POTASSIUM - SERUM 3.3 mmol/L (3.5-5.1); PROTEIN - SERUM 6.2 g/dL (6.4-8.2)
--- NOTE | 2016-10-10 07:35 | NUR ---
SLEEPING IN BED, EASILY AROUSED, SLIGHTLY CONFUSED, BED LOWEST POSITION, DENIES NEEDS, CALL LIGHT IN REACH, ASSESSMENT COMPLETE
[2016-10-10] MEDS ORDERED: TAMIFLU75 MG PO (15:26)
--- NOTE | 2016-10-10 16:00 | NUR ---
REMAINS IN DROPLET ISOLATION. HAD D/C ORDERS TO RETURN TO DETENTION. RESPIRATIONS EVEN AND NON LABORED.CALL LIGHT IN REACH, WILL CONTINUE WITH PLAN OF CARE.
--- NOTE | 2016-10-10 19:11 | NUR ---
DISCHARGE INSTRUCTIONS CALLED PATRICIA QUIROS LPN AT [facility], PAPERS SIGNED, QUESTIONS ANSWERED, IV REMOVED TIP INTACT, DISCHARGED PER WITH BELONGINGS TO [facility]
== END 2016-10-10 19:13 | DRG 189 ==
LOC: D.ER 12:38 → D.MS 21:01
PROVIDERS: Family Medicine; ADMIT Family Medicine
DX: J96.01 Acute respiratory failure with hypoxia (principal); R53.2 Functional quadriplegia; J11.1 Influenza due to unidentified influenza virus with other respiratory manifestations; I12.9 Hypertensive chronic kidney disease with stage 1 through stage 4 chronic kidney disease, or unspecified chronic kidney disease; N18.9 Chronic kidney disease, unspecified; K80.80 Other cholelithiasis without obstruction; F31.9 Bipolar disorder, unspecified; G62.9 Polyneuropathy, unspecified; N40.0 Benign prostatic hyperplasia without lower urinary tract symptoms

== ENCOUNTER → 2018-06-07 10:27 | Outpatient (CLI) | payer MEDICARE ==
[2016-10-09 11:35] VITALS: BMI 26.5
[~2018-06-07 10:27] MED LIST changes: +ACETAMINOPHEN325 MG PO; +ELIQUIS2.5 MG PO; +FLOMAX0.4 MG PO; +TAMIFLU75 MG PO; +ZOFRAN4 MG PO
== END | disposition home or self-care (01) ==
LOC: D.US 05-15 10:30
DX: N20.0 Calculus of kidney (principal)

== ENCOUNTER → 2018-06-14 14:01 | Outpatient (CLI) | payer MEDICARE ==
[2016-10-09 11:35] VITALS: BMI 26.5
== END | disposition home or self-care (01) ==
LOC: D.CT 06-13 16:30
DX: N28.89 Other specified disorders of kidney and ureter (principal)

== ENCOUNTER → 2018-06-21 11:28 | Outpatient (CLI) | payer MEDICARE ==
[2016-10-09 11:35] VITALS: BMI 26.5
== END | disposition home or self-care (01) ==
LOC: D.RAD 11:28
DX: N23 Unspecified renal colic (principal)

== ENCOUNTER 2018-07-06 10:51 | Observation (INO) | payer MEDICARE ==
[~2018-07-06] VITALS: Ht 162.6 cm; Wt 73.6 kg
[2018-07-06 11:22] LABS: BASOPHILS 0.6 % (0-2); EOSINOPHILS 3.8 % (0-7); HEMATOCRIT 52.2 % (42.0-54.0); HEMOGLOBIN 17.9 g/dL (13.5-17.5); IMMATURE GRANULOCYTES 0.2 % (0-5); LYMPHOCYTES 22.7 % (15-50); MCH 32.3 pg (26.0-34.0); MCHC 34.3 g/dL (31.0-37.0); MCV 94.2 fL (80.0-100.0); MEAN PLATELET VOLUME 10.6 fL (7.4-10.4); MONOCYTES 8.8 % (2-11); NEUTROPHILS 63.9 % (40-80); PLATELET COUNT 164 10x3/uL (130-400); RBC 5.54 10x6/uL (4.20-6.10); RDW 13.4 % (11.5-14.5); WBC 6.3 10x3/uL (4.8-10.8)
[2018-07-06 11:32] LABS: CALCIUM 8.7 mg/dL (8.5-10.1); CARBON DIOXIDE 28.6 mmol/L (21.0-32.0); CREATININE - SERUM 1.4 mg/dL (0.6-1.3); POTASSIUM - SERUM 4.6 mmol/L (3.5-5.1)
[2018-07-06 12:01] VITALS: BP 192/114; BMI 28.4
--- NOTE | 2018-07-06 15:45 | NUR ---
RECEIVED REPORT FROM DEON KIM RN AND RESUMED RECOVERY FOR THIS PATIENT AT 1515.
--- NOTE | 2018-07-06 15:46 | NUR ---
AT [address] GUERRA REGARDING ELEVATED BLOOD PRESSURE 178/117. VERBAL ORDERS RECEIVED TO ADMINISTER HYDRALAZINE 10MG IV X1 IN PACU. WILL CONTINUE TO MONITOR. PATIENT IS ALERT AND ORIENTED. NO COMPLAINTS OF CHEST PAIN.
--- NOTE | 2018-07-06 16:30 | NUR ---
REC'D TO ROOM 2207 AWAKE AND ALERT. RESP EVEN AND UNLABORED WITH NO DISTRESS NOTED. CAN EXPRESS NEEDS AND WANTS. C/O ABD PAIN RATING 10/10 ON PAIN SCALE. STERI STRIPES INTACT TO ABD X 4 SITES. ASSESSMENT COMPLETED. C/L IN REACH AT BEDSIDE.
[2018-07-06 16:50] VITALS: BP 157/75
[2018-07-06 19:07] VITALS: BP 127/94; Ht 162.6 cm; Wt 73.6 kg
[2018-07-06 21:11] VITALS: BP 165/107
[2018-07-07 04:34] VITALS: BP 132/78
--- NOTE | 2018-07-07 06:15 | NUR ---
CALL FROM PT STATES HE NEEDS PAIN MEDS NOW, PT LYING IN BED MOANING WITH PAIN STATES FEELS LIKE HE NEEDS TO PEE BUT CANT, STATES WAS GOING LITTLE BITS LAST NIGHT BUT NOW FEEL LIKE [place] NEEDS TO GO BUT CANT, DILAUDID GIVEN ORDERED INFORMED PT WOULD DO IN AND OUT CATH TO HELP RELIEV PRESSURE ON BLADDER, BECAME VERY AGITATED STAYING I DONT WANT A CATHER ILL TRY AGAIN TO PEE. INSTRUCTED WILL COME BACK TO SEE IF ANY LUCK
--- NOTE | 2018-07-07 07:15 | NUR ---
REC'D SITTING ON SIDE OF BED AWAKE AND ALERT. RESP EVEN AND UNLABORED WITH NO DISTRESS NOTED. CAN VOICE NEEDS AND WANTS. LAP SITE NOTED X 4 WITH STERI STRIPS INTACT. DRAFTER DIRECTIONAL SURVEY NURSE TRIED TO CATH PT D/T INABILITY TO URINATE BUT WAS UNSUCCESSFUL. ASSESSMENT COMPLETD. C/L IN REACH AT BEDSIDE.
--- NOTE | 2018-07-07 07:45 | NUR ---
DR. BARTLETT HERE INFORMED HIM OF PT BLOOD PRESSURE BEING ELEVATED AND HIS INABILITY TO URINATE. REC'D ORDERS FOR BLADDER SCAN AND COREG. THIS NURSE INFORMED PT OF NEW ORDERS. PT VOICED UNDERSTANDING. C/L IN REACH AT BEDSIDE.
--- NOTE | 2018-07-07 07:45 | NUR ---
AFTER MULTIPLE ATTEMPTS BY PT TO VOID HE AGREED TO HAVE IN AND OUT CATH, ATTEMPTED IN AND OUT CATH WITHOUT SUCCESS PT VERY TENSE UNABLE TO TOLERATE PROCEDURE, ON COMING NURSE NOTIFIED
--- NOTE | 2018-07-07 08:30 | NUR ---
REC'D CALL FROM PT ASKING ABOUT WHAT IS GOING ON WITH PT. THIS NURSE EXPLAINED TO PT THAT HIS BLOOD PRESSURE WAS UP ON THIS MORNING AND THAT HE WAS STILL UNABLE TO URINATE ALSO THAT DR. BARTLETT HAD ALEADY MADE ROUNDS AND THAT HE WANTS US TO BLADDER SCAN HIM TO SEE HOW MUCH URINE IS IN HIS BLADDER. AND A NEW BP MEDICATION WAS STARTED.
[2018-07-07 08:51] VITALS: BP 170/117
--- NOTE | 2018-07-07 10:52 | NUR ---
RESTING QUIETLY IN BED. UNABLE TO VOID AT THIS TIME. BLADDER SCAN COMPLETED.
[2018-07-07 15:59] VITALS: BP 166/108
--- NOTE | 2018-07-07 19:15 | NUR ---
RECEIVED CARE FROM DAY NURSE. LYING IN BED. CALL LIGHT AT SIDE. REPORTS NO NEEDS AT THIS TIME. IV SL TO RIGHT FA.
--- NOTE | 2018-07-07 19:59 | NUR ---
IV IN RIGHT FA LEAKING AT INSERTION SITE. DC'D WITH TIP IN TACT. RESITED TO LEFT FA. 22 GAUGE X1 STICK.
[2018-07-07 20:00] VITALS: BP 180/109
[2018-07-08] VITALS: BP 127/79
[2018-07-08 04:00] VITALS: BP 111/84
--- NOTE | 2018-07-08 04:00 | NUR ---
PT LAYING AWAKE IN BED. DENIES NEEDS AT THIS TIME. CONTINUE MAKE READY MECHANIC'S PLAN OF CARE.
--- NOTE | 2018-07-08 05:44 | NUR ---
PT REPORTS HIS RAY WAS SUPPOSED TO BE OFF AT 0500. HE WANTS IT OUT NOW. CATH DC'D WITH TIP INTACT.
--- NOTE | 2018-07-08 07:59 | NUR ---
PT AAOX4, RESP EVEN AND NONLABORED, NO SIGNS OF DISTRESS NOTED, NO QUESTIONS/CONCERNS EXPRESSED CL IN REACH WILL CONTINUE TO MONITOR
[2018-07-08 09:41] VITALS: BP 147/93
[2018-07-08 12:16] VITALS: BP 145/87
[2018-07-08] MEDS ORDERED: NORCO 10-325 TA1 TAB PO (14:21)
[2018-07-08] MEDS ORDERED: COREG 3.1253.125 MG PO (14:22)
[2018-07-08 17:32] VITALS: BP 140/92
--- NOTE | 2018-07-08 18:14 | NUR ---
PT HERE FOR GALL STONES FOR THIS VISIT. PT POD#3 MELANIE MARTELL FOR THIS VISIT. PT DENIES NEEDS AT THIS TIME WILL CONTINUE TO MONITOR
--- NOTE | 2018-07-08 19:15 | NUR ---
RECEIVED CARE FROM DAY NURSE. LYING IN BED ON BACK. REPORT NO NEEDS A THIS TIME. CALL LIGHT AT SIDE. DOES NOT WANT IN AND OUT CATH AT THIS TIME. IV SL TO PATENT LEFT FA.
[2018-07-08 20:00] VITALS: BP 143/97
--- NOTE | 2018-07-08 20:27 | NUR ---
PT REPORTS NO URINATION TODAY. REPORTS HE DOESNT WANT IN AND OUT BECUASE IT WOULDN'T GO IN BEFORE. REQUEST TO HAVE THE COUDE BACK. CALLED [employer] OPERATOR TO GET ONE. NONE ON MEDSURG OR MED II.
--- NOTE | 2018-07-08 21:05 | NUR ---
PT REPORTS HE CANT WAIT MUCH LONGER TO URINATE. PER HS SHE IS LOOKING COUDE. PT REFUSES TO ALLOW ME TO TRY AN IN AND OUT CATH.
--- NOTE | 2018-07-08 21:15 | NUR ---
14 [place] COUDE RAY INSERTED USING BACK CLOSER. 500 ML RETURN THEN CLAMPED. AFTER CLAMPING FOR 10 MINUTES THEN TUBING WAS UNCLAMPED AND ALLOWED TO FINISH DRAINING. RAY LEFT INDWELLING.
[2018-07-09] VITALS: BP 156/107
--- NOTE | 2018-07-09 01:34 | NUR ---
PATIENT ASSLEP IN BED WITH TV ON. NO S/S OF DISTRESS CALL LIGHT IN REACH. CALL LIGHT IN REACH,
[2018-07-09 04:00] VITALS: BP 95/71
[2018-07-09 09:24] VITALS: BP 146/83
--- NOTE | 2018-07-09 11:13 | NUR ---
PT SALINE LOCK DISCONTINUED WITH RAY LEG BAG APPLIED WITH INSTRCTIONS GIVEN WITH CARE. VERBALIZED UNDERSTANDING OF DISCHARGE INSTUCTIONS WELL. LEAVING POV WITH . STABLE AT TIME IF DISCHARGE.
--- NOTE | 2018-07-10 17:55 | OP ---
PATIENT NAME: HADLEY GARCIA MEDICAL RECORD: [id number] :47 LOCATION:[facility] ADMISSION DATE: SURGEON: RAJESH BARTLETT MD DATE OF OPERATION: 07/06/2018 PREOPERATIVE DIAGNOSES: 1. Biliary dyskinesia. 2. Hypertensive urgency. 3. Chronic low back pain. 4. Kidney stones. POSTOPERATIVE DIAGNOSES: 1. Biliary dyskinesia. 2. Hypertensive urgency. 3. Chronic low back pain. 4. Kidney stones. PROCEDURE: Laparoscopic cholecystectomy. SURGEON: Rajesh Bartlett MD REPORT OF PROCEDURE: The patient's abdomen was prepped and draped in sterile fashion. A skin incision was made on the superior aspect of the umbilicus, 0 Vicryls were placed on the fascia bilaterally and the fascia was incised with 15-blade. I then bluntly entered the peritoneal cavity and placed a 12-mm Shell port. Under direct visualization, a 5 mm trocar was placed in the epigastrium and 2 more 5-mm trocars were placed in the right subcostal region. The gallbladder was grasped and elevated. The cystic artery and cystic duct were dissected free and these were clipped proximally and distally and ligated in standard fashion. There were actually 2 branches to the cystic artery and these were both clipped and ligated. The gallbladder was then taken off the liver bed using electrocautery. During our dissection, there was noted to be another branch of the artery that was extending on the posterior aspect of the gallbladder. This was clipped and discontinued any bleeding. Once the gallbladder was off the liver bed and the liver bed was treated with electrocautery to stop any bleeding that was present. At this point, the gallbladder was placed into an Endo Catch bag and brought out through the umbilicus. The ports and insufflation were then removed. The umbilical fascia was closed with interrupted 0 Vicryls times 3. The wounds were then irrigated out with normal saline, infused with 10 mL of 0.25% Marcaine with epinephrine. The skin incisions were all closed with subcutaneous 5-0 Monocryl and dressed appropriately. COMPLICATIONS: None. CONDITION: Stable. ANESTHESIA: General endotracheal and local. BLOOD LOSS: Minimal. TRANSINT:[id number] Voice Confirmation ID: [id number] DOCUMENT ID: [id number] OPERATIVE REPORT [id number] HADLEY GARCIA RAJESH BARTLETT MD at 1755 CC: SHELLIE MENDOZA MD and JASPER WASHINGTON MD [id number] DICTATION DATE: 07/06/18 1500 ORDER BOOKER: 07/06/18 1509 DEP SDC 07/09/18 [id number] [place] [address]
== END 2018-07-09 11:00 | disposition home or self-care (01) ==
LOC: D.OPS 10:51 → D.MS 10:51 → D.OPS 13:15 → D.PAN 13:15 → D.MS 14:57 → OBSVTIME 14:57 → D.OPS 15:41 → D.MS 15:41 → D.OPS 07-09 11:00 → D.MS 07-11 01:07
PROVIDERS: Urology; ADMIT Surgery
DX: K82.8 Other specified diseases of gallbladder (principal); I16.0 Hypertensive urgency; G89.29 Other chronic pain; M54.5 Low back pain; N20.0 Calculus of kidney; F31.9 Bipolar disorder, unspecified

== ENCOUNTER 2018-07-27 06:53 | Day surgery (SDC) | payer MEDICARE ==
[~2018-07-27] VITALS: Ht 160 cm; Wt 60.3 kg
[~2018-07-27 06:53] MED LIST changes: +COREG 3.1253.125 MG PO; +NORCO 10-325 TA1 TAB PO
[2018-07-27 08:28] VITALS: BP 155/103; Ht 160 cm; Wt 60.3 kg
[2018-07-27 10:43] LABS: BASOPHILS 0.8 % (0-2); EOSINOPHILS 3.9 % (0-7); HEMATOCRIT 45.5 % (42.0-54.0); HEMOGLOBIN 15.5 g/dL (13.5-17.5); IMMATURE GRANULOCYTES 0.1 % (0-5); LYMPHOCYTES 24.4 % (15-50); MCH 32.2 pg (26.0-34.0); MCHC 34.1 g/dL (31.0-37.0); MCV 94.6 fL (80.0-100.0); MEAN PLATELET VOLUME 10.2 fL (7.4-10.4); NEUTROPHILS 62.8 % (40-80); RBC 4.81 10x6/uL (4.20-6.10); RDW 13.3 % (11.5-14.5); WBC 7.2 10x3/uL (4.8-10.8)
[2018-07-27 11:03] LABS: PLATELET COUNT 205 10x3/uL (130-400)
[2018-07-27 11:04] LABS: ALBUMIN 2.9 g/dL (3.4-5.0); ANION GAP 10.9 mmol/L (8-16); BILIRUBIN - TOTAL 0.39 mg/dL (0.2-1.3); CALCIUM 8.3 mg/dL (8.5-10.1); CARBON DIOXIDE 29.2 mmol/L (21.0-32.0); CREATININE - SERUM 1.3 mg/dL (0.6-1.3); POTASSIUM - SERUM 4.1 mmol/L (3.5-5.1)
[2018-07-27 11:07] LABS: APTT 30.1 SECONDS (22.8-39.4); INR 1.03 (0.85-1.17)
--- NOTE | 2018-07-27 13:04 | NUR ---
REC'D FROM LITHO PROCEDURE VIA WC BY Ping RICHARDSON RN. FAMILY AT BEDSIDE. PT HAD REFUSED THE CYSTOSCOPY AND STENT PLACEMENT. B/P ELEVATED AND WAS INSTRUCTED TO FOLLOW UP WITH DR WASHINGTON.
--- NOTE | 2018-07-27 13:30 | NUR ---
LUZ [facility] SERVED. B/P CONTINUES TO BE ELEVATED AND C/O LEFT FLANK PAIN 01/17. DR MENDOZA NOTIFIED AND INFORMED OF B/P 213/133. DR MENDOZA RELATES HIS PRESSURE WAS UP DURING THE ENTIRE PROCEDURE AND HE SPOKE WITH DR WASHINGTON IN THE HALLWAY AND PATIENT IS TO F/U WITH HIS PCP. ASKED DR MENDOZA IF PATIENT CAN BE DISCHARGED WITH THE ELEVATED BP AND HE INFORMS NURSE YES.
--- NOTE | 2018-07-27 13:35 | NUR ---
NORCO 5MG PO ADMINISTERED FOR C/O PAIN PER ORDERS. FAMILY AT BEDSIDE.
--- NOTE | 2018-07-27 13:55 | OP ---
PATIENT NAME: HADLEY GARCIA MEDICAL RECORD: [id number] :47 LOCATION:[facility] ADMISSION DATE: SURGEON: KEVON MENDOZA MD DATE OF OPERATION: 07/27/2018 SURGEON: Kevon Mendoza MD ANESTHESIA: TIVA by Megha Roche CRNA DIAGNOSIS: Left 7-mm renal stone. PROCEDURE: Left ESWL times 3000 shocks. FINDINGS: Left radiodense renal stone. SPECIMENS: None. BLOOD LOSS: None. CLINICAL HISTORY: This is a 73-year-old male who was found to have bilateral renal stones. The left side has a 7-mm stone and the right kidney has a 5-mm stone. He also has stones in the bladder and postoperatively, when he had some bowel surgery done, he went into urinary retention. He has obstructive BPH, which will also need to be addressed in the near future. Today, he comes to have the left renal stone treated with ESWL. He was scheduled for cystoscopy and left ureteral stent insertion, but at the last minute, the patient changed his mind. He did not wish to have a stent inserted. We are therefore proceeding with the left ESWL. He was given Ancef on-call to the OR. DESCRIPTION OF PROCEDURE: The patient was given IV sedation. The stone was visualized on fluoroscopy and targeted in 2 planes. It was given 3000 shocks, and at the end of the treatment, it was seen to have broken up. I will see him in followup with a KUB in 2 weeks' time to see how well the stone has cleared. At that point, we can make arrangements to treat the right-sided kidney stone. TRANSINT:[id number] Voice Confirmation ID: [id number] DOCUMENT ID: [id number] KEVON MENDOZA MD at 1355 CC: [id number] DICTATION DATE: 07/27/18 1307 E COMMERCE DEVELOPER: 07/27/18 1316 [facility] [address] [id number]
--- NOTE | 2018-07-27 14:00 | NUR ---
TOLERATED DIET. AMBULATED TO BATHROOM AND VOIDED WITHOUT DIDDICULTY. DARK BLOOD IN URINE. IV DC'D WITH CATHETER UNTACT.
--- NOTE | 2018-07-27 14:55 | NUR ---
WRITTEN AND VERBAL DC INST. GIVEN TO PT ALONG WITH RX. VERBALIZED UNDERSTANDING. RELATES PAIN NOT RELIEVED BY NORCO 5MG. RELATES HE HAS 10MG AT HOME HE GETS FROM HIS BACK DOCTOR.
--- NOTE | 2018-07-27 15:05 | NUR ---
DC'D HOME WITH FAMILY VIA PRIVATE VEHICLE. TAKEN TO VEHICLE VIA WC. STABLE AT TIME OF DC. URINE STRAINER SENT HOME WITH PATIENT. F/U APPTS FOR JULIAN AND DR MENDOZA GIVEN TO PT.
== END 2018-07-27 15:05 | disposition home or self-care (01) ==
LOC: D.OPS 06:53 → D.PAN 09:30 → D.OPS 12:45 → D.PAN 12:45 → D.OPS 15:05
PROVIDERS: Anesthesiology
DX: N20.0 Calculus of kidney (principal); N40.1 Benign prostatic hyperplasia with lower urinary tract symptoms; N13.8 Other obstructive and reflux uropathy; Z01.812 Encounter for preprocedural laboratory examination

== ENCOUNTER → 2018-09-06 11:01 | Outpatient (CLI) | payer MEDICARE ==
[2018-07-27 08:28] VITALS: BMI 29.4
== END | disposition home or self-care (01) ==
LOC: D.RAD 08-10 10:00
PROVIDERS: ATTEND Urology
DX: N20.0 Calculus of kidney (principal)

== ENCOUNTER → 2018-10-09 19:14 | Outpatient (CLI) | payer MEDICARE ==
[2018-07-27 08:28] VITALS: BMI 29.4
== END | disposition home or self-care (01) ==
LOC: D.LABREF 19:14
PROVIDERS: ATTEND Urology
DX: D72.829 Elevated white blood cell count, unspecified (principal); R31.9 Hematuria, unspecified

== ENCOUNTER 2018-10-26 10:52 | Day surgery (SDC) | payer MEDICARE ==
[~2018-10-26] VITALS: Ht 160 cm; Wt 69.1 kg
[2018-10-26] MEDS ORDERED: CARBIDOPA-LEVO1 EAC2 PO (12:42)
[2018-10-26 12:49] VITALS: Ht 160 cm; Wt 69.1 kg
--- NOTE | 2018-10-27 08:44 | OP ---
PATIENT NAME: HADLEY GARCIA MEDICAL RECORD: [id number] :49 LOCATION:D.OPS ADMISSION DATE: SURGEON: KEVON MENDOZA MD DATE OF OPERATION: 10/26/2018 SURGEON: Kevon Mendoza MD ANESTHESIA: TIVA by Megha Roche CRNA DIAGNOSIS: Right 6-mm renal stone. PROCEDURE: Right ESWL times 3000 shocks. FINDINGS: Radiodense right renal stone. SPECIMENS: None. BLOOD LOSS: None. CLINICAL HISTORY: This is a 73-year-old male who had bilateral renal stones. His left kidney stone was treated with ESWL a few months ago. He comes now to have the right-sided stone treated. He was given gentamicin IV on-call to the OR. DESCRIPTION OF PROCEDURE: The patient was placed on the treatment table. Fluoroscopy revealed the stone as radiodensity within the renal pelvis. The stone was targeted in 2 planes and 3000 shocks were given to it. It was seen to break up. The patient will be seen in followup in 2 weeks' time with a KUB. TRANSINT:[id number] Voice Confirmation ID: [id number] DOCUMENT ID: [id number] KEOVN MENDOZA MD at 0844 CC: [id number] DICTATION DATE: 10/26/18 1543 TRIAGE REGISTER NURSE: 10/26/18 1836 [facility] 10/26/18 [id number] [place] [address]
== END 2018-10-26 16:30 | disposition home or self-care (01) ==
LOC: D.OPS 10:52
PROVIDERS: ATTEND Urology
DX: N20.0 Calculus of kidney (principal)

== ENCOUNTER → 2018-11-22 09:34 | Outpatient (CLI) | payer MEDICARE ==
[2018-10-26 12:49] VITALS: BMI 26.9
[~2018-11-22 09:34] MED LIST changes: +CARBIDOPA-LEVO1 EAC2 PO
[2018-11-22 10:31] LABS: BASOPHILS 0.5 % (0-2); EOSINOPHILS 4.1 % (0-7); HEMATOCRIT 47.2 % (42.0-54.0); IMMATURE GRANULOCYTES 0.2 % (0-5); LYMPHOCYTES 27.5 % (15-50); MCH 31.6 pg (26.0-34.0); MCHC 33.9 g/dL (31.0-37.0); MCV 93.1 fL (80.0-100.0); MEAN PLATELET VOLUME 10.9 fL (7.4-10.4); MONOCYTES 10.6 % (2-11); NEUTROPHILS 57.1 % (40-80); PLATELET COUNT 167 10x3/uL (130-400); RBC 5.07 10x6/uL (4.20-6.10); RDW 13.7 % (11.5-14.5); WBC 6.6 10x3/uL (4.8-10.8)
[2018-11-22 10:37] LABS: ANION GAP 14.2 mmol/L (8-16); CALCIUM 8.5 mg/dL (8.5-10.1); CARBON DIOXIDE 27.9 mmol/L (21.0-32.0); CREATININE - SERUM 1.5 mg/dL (0.6-1.3); POTASSIUM - SERUM 4.1 mmol/L (3.5-5.1)
== END | disposition home or self-care (01) ==
LOC: D.RAD 11-02 11:00
PROVIDERS: ATTEND Urology
DX: N20.0 Calculus of kidney (principal)

== ENCOUNTER → 2019-01-08 14:09 | Outpatient (CLI) | payer MEDICARE ==
[2018-10-26 12:49] VITALS: BMI 26.9
== END | disposition home or self-care (01) ==
LOC: D.RAD 14:09
PROVIDERS: ATTEND Physical Medicine & Rehabilitation Pain Medicine
DX: G89.29 Other chronic pain (principal); R01.1 Cardiac murmur, unspecified